=== PATIENT | female | born 1940 | race Caucasian/White ===

== ENCOUNTER 2018-08-07 18:16 | Emergency (ER) | payer OTHER ==
[~2018-08-07] VITALS: Ht 165.1 cm; Wt 105.2 kg
[~2018-08-07 18:16] MED LIST: AUGMENTIN 500-1 EACH PO; BENADRYL25 MG PO; CALCIUM; CIPRO500 MG PO; CIPROFLOXACIN500 M1 PO; CIPROFLOXIN HC2.5 M1 OPHTHALMIC; CLEOCIN HCL300 MG PO; DIABETA; DULCOLAX5 MG PO; ECONAZOLE 1% CR30 G1 TP; FLAGYL500 MG PO; GLUCOPHAGE500 MG PO; GLYBURIDE 5 MG T5 MG PO; LANTUS; LANTUS100 UNIT/M SUBQ; MAG-AL PLUS SUS30 ML PO; MELATONIN3 MG PO; METFORMIN HCL500 MG PO; MILK OF MA2400 MG/10 PO; NEURONTIN 300300 M1 PO; NORCO 5-325 TA1 EACH PO; NYAMYC15 GM TOP; ONDANSETRON HCL4 M2 PO; PHENERGAN 25 MG25 M1 PO; RECLAST 55 MG/100 M; SIMVASTATIN40 MG PO; TRAMADOL 50 MG50 MG PO; TYLENOL325 MG PO; VICODIN 5-5001 EACH PO; VITAMIN D400 UNI1; ZOCOR 10 MG TAB10 MG
[2018-08-07 18:22] VITALS: BP 112/61
[2018-08-07] MEDS ORDERED: CLARITIN10 MG PO (18:42)
[2018-08-07] MEDS ORDERED: TYLENOL325 MG PO (18:43)
[2018-08-07 18:50] LABS: BE -7.2 mmol/L (-2 to +3); HCO3 16.2 mmol/L (22.0-26.0); PCO2 24.4 mmHg (35.0-45.0)
[2018-08-07 18:52] LABS: PO2 174.7 mmHg (75.0-100.0)
[2018-08-07 19:20] LABS: ABSOLUTE LYMPHOCYTES 1.8 thou/uL (0.8-5.3); ABSOLUTE MONOCYTES 0.5 thou/uL (0.0-1.2); ABSOLUTE NEUTROPHILS 10.5 thou/uL (1.6-8.1); LYMPHOCYTES 14.3 %; MCH 25.9 pg (26.0-34.0); MCHC 30.9 g/dL (28.0-37.0); MCV 83.8 fL (80.0-100.0); MONOCYTES 3.9 %; MPV 8.4 fl. (7.2-11.1); NUCLEATED RBCS 0 /100WBC; PLATELET COUNT* 383 thou/uL (150-400); POLYS 81.8 %; RBC 2.24 mil/uL (4.20-5.00); RDW-CV 14.8 % (10.5-14.5); WBC 12.9 thou/uL (4.0-11.0)
[2018-08-07 19:25] LABS: CALCIUM 8.6 mg/dL (8.5-10.1); CREATININE 1.5 mg/dL (0.6-1.3); POTASSIUM 4.6 mmol/L (3.5-5.1)
[2018-08-07 19:27] LABS: APTT 23.6 Seconds (25.0-31.3); INR 1.3; PROTIME 12.8 Seconds (9.20-11.50)
[2018-08-07 19:28] LABS: HEMOGLOBIN 5.8 gm/dL (12.0-15.0)
[2018-08-07 19:29] LABS: HEMATOCRIT 18.8 % (37.0-47.0)
[2018-08-07 19:41] LABS: ALBUMIN 2.2 g/dL (3.4-5.0); TOTAL BILIRUBIN 0.5 mg/dL (<0.1-1.0); TOTAL PROTEIN 6.4 g/dL (6.4-8.2); TROPONIN-I LEVEL 0.12 ng/mL (<0.06)
[2018-08-07 20:58] LABS: % SATURATION 14 % (20-39); IRON 38 ug/dL (50-175)
[2018-08-07 23:14] LABS: URINE BILIRUBIN NEGATIVE (Negative); URINE BLOOD NEGATIVE (Negative); URINE CLARITY CLEAR; URINE COLOR YELLOW; URINE GLUCOSE-RANDOM 3+ (Negative); URINE KETONES 2+ (Negative); URINE LEUKOCYTES-REFLEX NEGATIVE (Negative); URINE NITRITE-REFLEX NEGATIVE (Negative); URINE PROTEIN NEGATIVE (Negative); URINE UROBILINOGEN 0.2 E.U./dl (0.2-1.0)
[2018-08-08 00:30] VITALS: BP 148/62
--- NOTE | 2018-08-08 10:19 | EKG ---
[place] [address] ELECTROCARDIOGRAM REPORT Name: YOKASTA DASH Room: [place] [address] DIS IN M.R.#: [id number] Admission: 08/07/18 Attend Phys: Ricardo Hendrickson MD Discharge: 08/08/18 Date of : 42 Report #: [id number] THIS REPORT FOR: //name// [facility] ED Test Date: 2018-08-07 Test Time: 18:26:33 Pat Name: YOKASTA DASH Department: Room: [facility] Gender: F Certified Maintenance Welder: Isidro PLASENCIA : [id number] Requested By: Bharath Jasmine Order Number: [id number] MD: Rickie Chapin Measurements Intervals [place] Rate: 112 P: 0 MS: 53 QRS: -27 QRSD: 97 T: 26 QT: 339 QTc: 463 Interpretive Statements Sinus tachycardia artifact noted Borderline left axis deviation Low voltage, extremity and precordial leads Repol abnrm suggests ischemia, diffuse leads Compared to ECG 05/05/2015 14:31:05 Possible ischemia now present Sinus rhythm no longer present Electronically Signed On 08-08-2018 10:19:35 CDT by Rickie Chapin [email or web address] <ELECTRONICALLY SIGNED> By: Rickie Chapin MD, FACC 08/08/18 [id number] Rickie Chapin MD, FACC /EPI
[2018-08-08 23:12] LABS: GLYCOHEMOGLOBIN (HGB A1C) 10.3 % (4.8-5.6)
== END 2018-08-08 00:30 | DRG 377 ==
LOC: M.ERS 18:16 → M.TBA-ER 21:05 → M.ERS 21:05 → M.TBA-ER 08-08 00:34
PROVIDERS: Emergency Medicine; Emergency Medicine Emergency Medical Services; Internal Medicine
PROC: 30233N1 Transfusion of Nonautologous Red Blood Cells into Peripheral Vein, Percutaneous Approach (ICD-10-PCS; principal; 2018-08-07)
DX: K92.2 Gastrointestinal hemorrhage, unspecified (principal); E11.00 Type 2 diabetes mellitus with hyperosmolarity without nonketotic hyperglycemic-hyperosmolar coma (NKHHC); D62 Acute posthemorrhagic anemia; G93.40 Encephalopathy, unspecified; N17.9 Acute kidney failure, unspecified; E78.00 Pure hypercholesterolemia, unspecified; Z90.49 Acquired absence of other specified parts of digestive tract; Z88.6 Allergy status to analgesic agent; Z88.1 Allergy status to other antibiotic agents; Z88.2 Allergy status to sulfonamides; Z88.8 Allergy status to other drugs, medicaments and biological substances; Z79.899 Other long term (current) drug therapy